=== PATIENT | female | born 1945 | race Caucasian/White ===

== ENCOUNTER → 2019-12-17 10:30 | Outpatient (CLI) | payer MEDICARE, OTHER, SELFPAY | PROVIDERS: Family Provider Nutritionist; PCP Physician Assistant Medical; Visit Provider Obstetrics & Gynecology | DX: R32 Unspecified urinary incontinence (principal) | CPT/HCPCS: 87077; 87086; 87186 ==

== ENCOUNTER → 2020-04-03 10:09 | Outpatient (CLI) | payer MEDICARE, OTHER, SELFPAY ==
[2020-04-04 07:33] LABS: COVID19 Sendout Not Detected (Not Detect)
== END ==
PROVIDERS: Family Provider Nutritionist; PCP Physician Assistant Medical; Visit Provider Physician Assistant
DX: Z01.812 Encounter for preprocedural laboratory examination (principal)
CPT/HCPCS: 87635

== ENCOUNTER → 2020-04-12 09:41 | Outpatient (CLI) | payer MEDICARE, OTHER, SELFPAY ==
[2020-04-13 01:47] LABS: COVID19 Sendout Not Detected (Not Detect)
== END ==
PROVIDERS: Family Provider Nutritionist; PCP Physician Assistant Medical; Visit Provider Physician Assistant
DX: Z01.812 Encounter for preprocedural laboratory examination (principal)
CPT/HCPCS: 87635